=== PATIENT | female | born 1975 | race African-American/Black ===

== ENCOUNTER 2019-04-15 23:51 | Inpatient (IN) | payer MEDICAID ==
[~2019-04-15] VITALS: Ht 157.5 cm; Wt 94.3 kg
[2019-04-16] MEDS ORDERED: AMLODIPINE 10MG TABLET PO ONE (00:30)
[2019-04-16] MEDS ORDERED: CLONIDINE 0.2MG TABLET PO ONE (00:30)
[2019-04-16 00:56] LABS: CHLORIDE 109 mEq/L (98-107)
[2019-04-16 01:01] LABS: BASOPHILS % 0.7 % (0.0-2.0); EOSINOPHILS % 0.5 % (0.0-5.0); HEMATOCRIT. 44.5 % (36.0-48.0); HEMOGLOBIN. 14.2 g/dL (12.0-16.0); LYMPHOCYTES % 21.4 % (20.0-50.0); MEAN CORPUSCULAR HEMOGLOBIN 27.8 pg (28.0-32.0); MEAN CORPUSCULAR VOLUME 86.9 fL (81.0-99.0); MEAN PLATELET VOLUME 9.1 fl (7.4-10.4); MONOCYTES % 7.4 % (2.0-8.0); PLATELET 285 x1000/uL (130-400); RED BLOOD CELL COUNT 5.12 mill/uL (4.2-5.4); RED CELL DISTRIBUTION WIDTH 13.5 % (11.6-14.6)
[2019-04-16] MEDS ORDERED: HYDRALAZINE 20MG/ML VIAL IV ONE (02:00)
[2019-04-16 02:30] LABS: HCG SCREEN NEGATIVE
[2019-04-16] MEDS ORDERED: ACETAMINOPHEN 325MG TABLET PO PRN (08:30)
[2019-04-16] MEDS ORDERED: ONDANSETRON HCL 4MG/2ML INJ IV PRN (08:30)
[2019-04-16] MEDS: AMLODIPINE 5MG TABLET PO SCH ×2 (09:34→22:37)
[2019-04-16] MEDS: CLONIDINE 0.1MG TABLET PO PRN ×2 (10:49→16:44)
[2019-04-16 10:54] LABS: CLARITY URINE CLEAR (CLEAR); COLOR URINE YELLOW (YELLOW); KETONES URINE TRACE (NEGATIVE); LEUKOCYTE ESTERASE URINE NEGATIVE (NEGATIVE); NITRITE URINE NEGATIVE (NEGATIVE); OCCULT BLOOD URINE NEGATIVE (NEGATIVE); PH URINE 6.5 (4.5-8.0); PROTEIN URINE NEGATIVE (NEGATIVE); SPECIFIC GRAVITY URINE 1.016 (1.005-1.030)
[2019-04-16 11:26] LABS: *AMPHETAMINES SCREEN URINE NEGATIVE (NEGATIVE); *BENZODIAZEPINES SCREEN URINE NEGATIVE (NEGATIVE); *COCAINE SCREEN URINE NEGATIVE (NEGATIVE); METHADONE URINE SCREEN NEGATIVE (NEGATIVE)
[2019-04-16 11:28] LABS: CANNABINOID URINE SCREEN NEGATIVE (NEGATIVE)
[2019-04-16 11:30] LABS: *BARBITURATES SCREEN URINE NEGATIVE (NEGATIVE)
[2019-04-16 11:48] LABS: PHENCYCLIDINE URINE SCREEN PRESUMTIVE POSITIVE (NEGATIVE)
[2019-04-16] MEDS: LOSARTAN POTASSIUM 100 MG TABLET PO SCH (13:03)
[2019-04-16] MEDS ORDERED: AMLO10TA80 MT (16:23)
[2019-04-16] MEDS ORDERED: LOSA100T32 MT (16:23)
[2019-04-16] MEDS ORDERED: HYDRALAZINE HCL 100MG TABLET PO NR (18:00)
[2019-04-16 23:50] VITALS: BP 129/71
[2019-04-17] VITALS: BP 129/71
[2019-04-17] MEDS ORDERED: HYDROCODONE/ACETAMINOPHEN 5/325MG TABLET PO PRN
[2019-04-17 04:00] VITALS: BP 158/88
[2019-04-17] MEDS ORDERED: DEXTROSE 50% WATER 50ML SYRINGE IV PRN (05:15)
[2019-04-17 06:58] LABS: CHLORIDE 105 mEq/L (98-107)
[2019-04-17 07:08] LABS: BASOPHILS % 0.6 % (0.0-2.0); EOSINOPHILS % 0.4 % (0.0-5.0); HEMATOCRIT. 42.7 % (36.0-48.0); HEMOGLOBIN. 14.2 g/dL (12.0-16.0); LYMPHOCYTES % 18.6 % (20.0-50.0); MEAN CORPUSCULAR HEMOGLOBIN 28.3 pg (28.0-32.0); MEAN CORPUSCULAR VOLUME 85.1 fL (81.0-99.0); MEAN PLATELET VOLUME 9.3 fl (7.4-10.4); MONOCYTES % 9.1 % (2.0-8.0); NEUTROPHILS % 71.3 % (40.0-76.0); PLATELET 296 x1000/uL (130-400); RED BLOOD CELL COUNT 5.01 mill/uL (4.2-5.4); RED CELL DISTRIBUTION WIDTH 13.5 % (11.6-14.6)
[2019-04-17 07:12] LABS: LDL CHOLESTEROL 69 mg/dL (5-100)
[2019-04-17 07:14] LABS: HDL CHOLESTEROL 45 mg/dL (40-59)
[2019-04-17] MEDS ORDERED: BLOOD SUGAR DIAGNOSTIC STRIP TEST SCH (07:20)
[2019-04-17] MEDS ORDERED: INSULIN LISPRO 100 UNITS/ML SUBCUT SCH (07:50)
[2019-04-17 08:37] VITALS: BP 141/78
[2019-04-17 08:52] LABS: OPIATES URINE SCREEN NEGATIVE (NEGATIVE)
[2019-04-17] MEDS: AMLODIPINE 5MG TABLET PO SCH (09:10)
[2019-04-17] MEDS: LOSARTAN POTASSIUM 100 MG TABLET PO SCH (09:10)
[2019-04-17] MEDS ORDERED: POTASSIUM CHLORIDE 20MEQ TABLET SR PO NR (09:45)
[2019-04-17 11:26] VITALS: BP 151/85
[2019-04-17 12:24] VITALS: BP 151/85
== END 2019-04-17 12:15 | disposition home or self-care (01) | DRG 199 ==
LOC: ER 23:51 → ENRESERV 04-16 20:01 → CANRESERV 04-16 20:01 → 6WST 04-16 22:35 → ENRESERV 04-16 22:43
PROVIDERS: ADMIT Internal Medicine; ATTEND Internal Medicine
DX: I16.0 Hypertensive urgency (principal); E87.8 Other disorders of electrolyte and fluid balance, not elsewhere classified; D21.9 Benign neoplasm of connective and other soft tissue, unspecified; R04.0 Epistaxis; F31.9 Bipolar disorder, unspecified; E11.9 Type 2 diabetes mellitus without complications; E66.9 Obesity, unspecified; F16.10 Hallucinogen abuse, uncomplicated; F17.210 Nicotine dependence, cigarettes, uncomplicated; J45.909 Unspecified asthma, uncomplicated; Z88.1 Allergy status to other antibiotic agents; Z71.51 Drug abuse counseling and surveillance of drug abuser; Z68.38 Body mass index [BMI] 38.0-38.9, adult; Z91.14 Patient's other noncompliance with medication regimen; I10 Essential (primary) hypertension
CPT/HCPCS: 36415; 71045; 80053; 80061; 80305; 81003; 82962; 83036; 83880; 84443; 84484; 84703; 85025; 93005; 99291; J0360

== ENCOUNTER 2019-04-25 14:53 | Emergency (ER) | payer MEDICAID ==
[~2019-04-25] VITALS: Ht 175.3 cm; Wt 100.0 kg
[~2019-04-25 14:53] MED LIST: AMLO10TA80 MT; LOSA100T32 MT
[2019-04-25 17:09] LABS: CHLORIDE 104 mEq/L (98-107)
[2019-04-25 17:12] LABS: BASOPHILS % 0.7 % (0.0-2.0); EOSINOPHILS % 0.6 % (0.0-5.0); HEMATOCRIT. 41.1 % (36.0-48.0); HEMOGLOBIN. 13.6 g/dL (12.0-16.0); LYMPHOCYTES % 22.9 % (20.0-50.0); MEAN CORPUSCULAR HEMOGLOBIN 28.3 pg (28.0-32.0); MEAN CORPUSCULAR VOLUME 85.8 fL (81.0-99.0); MEAN PLATELET VOLUME 9.3 fl (7.4-10.4); MONOCYTES % 8.5 % (2.0-8.0); NEUTROPHILS % 67.3 % (40.0-76.0); PLATELET 298 x1000/uL (130-400); RED BLOOD CELL COUNT 4.79 mill/uL (4.2-5.4)
[2019-04-25 17:14] LABS: ETHANOL BLOOD < 10 mg/dL
[2019-04-25] MEDS ORDERED: POTASSIUM CHLORIDE 10MEQ TABLET SR PO ONE (18:15)
[2019-04-25 18:47] VITALS: BP 168/99
== END 2019-04-25 18:50 | disposition home or self-care (01) ==
LOC: ER 14:53
DX: Z04.1 Encounter for examination and observation following transport accident (principal); E87.6 Hypokalemia; I10 Essential (primary) hypertension; F25.0 Schizoaffective disorder, bipolar type
CPT/HCPCS: 36415; 80053; 80307; 80320; 80329; 82962; 85025; 99284; G0480

== ENCOUNTER 2020-11-03 02:51 | Emergency (ER) | payer MEDICAID ==
[~2020-11-03] VITALS: Ht 177.8 cm; Wt 91.0 kg
[2020-11-03] MEDS ORDERED: HYDROCODONE/ACETAMINOPHEN 5/325MG TABLET PO STA (03:45)
[2020-11-03] MEDS ORDERED: IBUP-2029 MT (05:41)
[2020-11-03 05:46] VITALS: BP 127/78
== END 2020-11-03 05:52 | disposition home or self-care (01) ==
LOC: ER 02:51
DX: R51.9 Headache, unspecified (principal); F43.0 Acute stress reaction; Z63.4 Disappearance and death of family member; I10 Essential (primary) hypertension; J45.909 Unspecified asthma, uncomplicated
CPT/HCPCS: 99284

== ENCOUNTER 2021-04-14 10:54 | Emergency (ER) | payer MEDICAID ==
[~2021-04-14] VITALS: Ht 160 cm; Wt 113.0 kg
[~2021-04-14 10:54] MED LIST changes: +IBUP-2029 MT
[2021-04-14 10:58] VITALS: BP 131/82
[2021-04-14 12:11] LABS: HEMATOCRIT. 39.2 % (36.0-48.0); HEMOGLOBIN. 12.7 g/dL (12.0-16.0); LYMPHOCYTES % 35.4 % (20.0-50.0); MEAN CORPUSCULAR HEMOGLOBIN 27.7 pg (28.0-32.0); MEAN CORPUSCULAR VOLUME 85.6 fL (81.0-99.0); MEAN PLATELET VOLUME 9.4 fl (7.4-10.4); MONOCYTES % 8.8 % (2.0-8.0); NEUTROPHILS % 53.8 % (40.0-76.0); PLATELET 267 x1000/uL (130-400); RED BLOOD CELL COUNT 4.58 mill/uL (4.2-5.4)
[2021-04-14 12:19] LABS: CHLORIDE 107 mEq/L (98-107)
[2021-04-14 12:22] LABS: HCG SCREEN INDETERMINATE
== END 2021-04-14 15:56 | disposition left against medical advice (07) ==
LOC: ER 10:54
DX: J45.909 Unspecified asthma, uncomplicated (principal); I10 Essential (primary) hypertension; K02.9 Dental caries, unspecified; Z88.1 Allergy status to other antibiotic agents
CPT/HCPCS: 36415; 71045; 80053; 84484; 84702; 84703; 85025; 93005; 99285